=== PATIENT | female | born 1990 | race Caucasian/White ===

== ENCOUNTER 2021-07-24 13:07 | Outpatient (CLI) | payer OTHER | END 2021-07-24 13:08 | disposition home or self-care (01) | LOC: DTY/OP 13:07 | PROVIDERS: ATTEND Family Medicine | DX: E66.01 Morbid (severe) obesity due to excess calories (principal) | CPT/HCPCS: 97802 ==

== ENCOUNTER 2022-03-21 05:41 | Day surgery (SDC) | payer OTHER ==
[2022-03-19 12:35] VITALS: BMI 51.2
[2022-03-21] MEDS ORDERED: Midazolam HCl 2 mg/2 ml Vial ONE ×2 (07:10→07:40)
[2022-03-21] MEDS ORDERED: Ketamine 50 MG/ML (10ML VIAL) ONE (07:10)
[2022-03-21] MEDS ORDERED: PROPOFOL 200 MG/20 ML VIAL ONE (08:07)
== END 2022-03-21 10:28 | disposition home or self-care (01) ==
LOC: SDC 05:41
PROVIDERS: ATTEND Internal Medicine Gastroenterology
PROC: 0DB98ZX Excision of Duodenum, Via Natural or Artificial Opening Endoscopic, Diagnostic (ICD-10-PCS; principal; 2022-03-21)
PROC: 0DJD8ZZ Inspection of Lower Intestinal Tract, Via Natural or Artificial Opening Endoscopic (ICD-10-PCS; principal; 2022-03-21)
DX: K92.1 Melena (principal); R10.13 Epigastric pain; Z79.899 Other long term (current) drug therapy; Z91.014 Allergy to mammalian meats
CPT/HCPCS: 88305; J2250; J2704

== ENCOUNTER 2022-06-27 11:20 | Outpatient (CLI) | payer OTHER | END 2022-06-27 11:21 | disposition home or self-care (01) | LOC: BICRAD 11:20 | PROVIDERS: ATTEND Family Medicine | DX: M79.671 Pain in right foot (principal); M19.071 Primary osteoarthritis, right ankle and foot; M77.31 Calcaneal spur, right foot | CPT/HCPCS: 36415; 80053; 80061; 81001; 82785; 83036; 84439; 84443; 85025 ==